=== PATIENT | male | born 1980 | race African-American/Black ===

== ENCOUNTER → 2021-01-08 | Outpatient (CLI) | payer OTHER ==
--- NOTE | 2021-01-08 15:16 | REPVR ---
PROCEDURE INFORMATION: Exam: MR Head Without Contrast; Internal Auditory Canals Exam date and time: 01/08/2021 12:58 PM Age: 40 years old Clinical indication: Other: Lt sided hearing loss TECHNIQUE: Imaging protocol: MR of the head without contrast. Exam focused on the internal auditory canals. COMPARISON: No relevant prior studies available. FINDINGS: Brain: No acute infarct identified on the diffusion-weighted imaging. No evidence of brain parenchymal edema or intracranial mass effect. No significant white matter disease. Ventricles: No ventriculomegaly. Sinuses: Prior endoscopic sinus surgery. Moderate opacification of remaining ethmoid air cells. No air-fluid levels. Mastoid air cells: Unremarkable. No effusions. Internal auditory canals: Unremarkable. 7th and 8th cranial nerves are unremarkable. No abnormal masses. Bones/joints: Unremarkable. Soft tissues: There is a left suboccipital scalp lipoma measuring 2.6 cm. IMPRESSION: No acute intracranial abnormality. No evidence of IAC mass. Electronically signed by: Thuy Way On 01/08/2021 15:16:44 PM
== END ==
LOC: M RAD 12:52
PROVIDERS: ATTEND Otolaryngology
DX: H90.42 Sensorineural hearing loss, unilateral, left ear, with unrestricted hearing on the contralateral side (principal)

== ENCOUNTER 2022-05-18 10:31 | Emergency (ER) | payer OTHER ==
[~2022-05-18] VITALS: Ht 180.3 cm; Wt 92.1 kg
[2022-05-18] MEDS ORDERED: CELE1CAP7 (11:12)
[2022-05-18] MEDS ORDERED: MIRT-62 (11:12)
[2022-05-18] MEDS ORDERED: REFR0.1D (11:12)
[2022-05-18] MEDS ORDERED: D 50CAP2 (11:12)
[2022-05-18] MEDS ORDERED: GABA-282 (11:12)
[2022-05-18] MEDS ORDERED: FLUTISP (11:12)
[2022-05-18] MEDS ORDERED: FLUO20CA22 (11:12)
[2022-05-18 13:54] VITALS: BP 156/83
== END 2022-05-18 13:55 | disposition home or self-care (01) ==
LOC: M ED 10:31
DX: R07.9 Chest pain, unspecified (principal); V49.40XA Driver injured in collision with unspecified motor vehicles in traffic accident, initial encounter; R00.1 Bradycardia, unspecified; I45.10 Unspecified right bundle-branch block; I10 Essential (primary) hypertension; M54.30 Sciatica, unspecified side; Z88.0 Allergy status to penicillin; Z79.811 Long term (current) use of aromatase inhibitors; Z79.899 Other long term (current) drug therapy; Y99.9 Unspecified external cause status